=== PATIENT | female | born 1985 | race Caucasian/White ===

== ENCOUNTER 2016-10-07 06:31 | Emergency (ER) | payer OTHER ==
[2015-05-23 17:24] VITALS: BMI 33.3
[~2016-10-07 06:31] MED LIST: HYDROCODONE-APA1 TAB PO; IBUPROFEN600 MG PO
== END 2016-10-07 09:00 | disposition left against medical advice (07) ==
LOC: D.ER 06:31
DX: H92.02 Otalgia, left ear (principal)

== ENCOUNTER 2016-10-11 20:15 | Emergency (ER) | payer OTHER ==
[2015-05-23 17:24] VITALS: BMI 33.3
== END 2016-10-12 00:25 | disposition home or self-care (01) ==
LOC: D.ER 20:15
DX: H66.92 Otitis media, unspecified, left ear (principal); H92.03 Otalgia, bilateral; H69.90 Unspecified Eustachian tube disorder, unspecified ear; J06.9 Acute upper respiratory infection, unspecified

== ENCOUNTER 2016-11-07 21:38 | Emergency (ER) | payer OTHER ==
[2015-05-23 17:24] VITALS: BMI 33.3
== END 2016-11-07 23:36 | disposition home or self-care (01) ==
LOC: D.ER 21:38
DX: T14.8 Other injury of unspecified body region (principal); W19.XXXA Unspecified fall, initial encounter; Y93.89 Activity, other specified; Y92.89 Other specified places as the place of occurrence of the external cause; F17.200 Nicotine dependence, unspecified, uncomplicated

== ENCOUNTER 2016-12-02 21:39 | Emergency (ER) | payer OTHER ==
[2015-05-23 17:24] VITALS: BMI 33.3
[2016-12-03 00:10] LABS: HCG URINE NEGATIVE (NEGATIVE)
== END 2016-12-03 00:35 | disposition home or self-care (01) ==
LOC: D.ER 21:39
PROVIDERS: Physician Assistant Medical
DX: G43.909 Migraine, unspecified, not intractable, without status migrainosus (principal); F17.200 Nicotine dependence, unspecified, uncomplicated

== ENCOUNTER 2017-01-30 20:25 | Emergency (ER) | payer OTHER ==
[2015-05-23 17:24] VITALS: BMI 33.3
== END 2017-01-30 21:19 | disposition home or self-care (01) ==
LOC: D.ER 20:25
DX: S60.221A Contusion of right hand, initial encounter (principal); X58.XXXA Exposure to other specified factors, initial encounter; Y93.89 Activity, other specified; Y92.89 Other specified places as the place of occurrence of the external cause; F17.200 Nicotine dependence, unspecified, uncomplicated

== ENCOUNTER 2017-03-30 15:09 | Emergency (ER) | payer OTHER ==
[2015-05-23 17:24] VITALS: BMI 33.3
[2017-03-30 16:42] LABS: BASOPHILS 0.6 % (0-2); EOSINOPHILS 2.5 % (0-7); HEMATOCRIT 43.6 % (36.0-48.0); HEMOGLOBIN 14.8 g/dL (12-16); IMMATURE GRANULOCYTES 0.3 % (0-5); LYMPHOCYTES 21.7 % (15-50); MCH 30.2 pg (26.0-34.0); MCHC 33.9 g/dL (31.0-37.0); MEAN PLATELET VOLUME 10.4 fL (7.4-10.4); MONOCYTES 10.1 % (2-11); NEUTROPHILS 64.8 % (40-80); PLATELET COUNT 171 10x3/uL (130-400); RDW 13.4 % (11.5-14.5)
[2017-03-30 16:44] LABS: ALBUMIN 3.9 g/dL (3.4-5.0); ALKALINE PHOSPHATASE 85 U/L (46-116); ALT (SGPT) 41 U/L (10-68); BILIRUBIN - TOTAL 0.45 mg/dL (0.2-1.3); CALC OSMOLALITY 288 mosm/kg (275-300); CALCIUM 9.8 mg/dL (8.5-10.1); CHLORIDE - SERUM 107 mmol/L (98-107); CREATININE - SERUM 0.7 mg/dL (0.6-1.3); GLUCOSE 103 mg/dL (74-106); POTASSIUM - SERUM 3.8 mmol/L (3.5-5.1); SODIUM 145 mmol/L (136-145); UREA NITROGEN 13 mg/dL (7-18); eGFR NON AFRICAN AMERICAN > 90 mL/min (90-120)
== END 2017-03-30 17:55 | disposition home or self-care (01) ==
LOC: D.ER 15:09
PROVIDERS: Physician Assistant Medical
DX: R51 Headache (principal); B34.9 Viral infection, unspecified; F17.200 Nicotine dependence, unspecified, uncomplicated

== ENCOUNTER 2017-05-05 00:36 | Emergency (ER) | payer OTHER ==
[2015-05-23 17:24] VITALS: BMI 33.3
== END 2017-05-05 01:44 | disposition home or self-care (01) ==
LOC: D.ER 00:36
DX: G43.909 Migraine, unspecified, not intractable, without status migrainosus (principal); F17.200 Nicotine dependence, unspecified, uncomplicated

== ENCOUNTER 2017-05-10 07:23 | Emergency (ER) | payer OTHER ==
[2015-05-23 17:24] VITALS: BMI 33.3
[2017-05-10 09:45] LABS: BASOPHILS 0.5 % (0-2); EOSINOPHILS 3.9 % (0-7); HEMATOCRIT 43.2 % (36.0-48.0); HEMOGLOBIN 14.6 g/dL (12-16); IMMATURE GRANULOCYTES 0.1 % (0-5); LYMPHOCYTES 21.3 % (15-50); MCHC 33.8 g/dL (31.0-37.0); MCV 88.9 fL (80.0-100.0); MEAN PLATELET VOLUME 10.1 fL (7.4-10.4); MONOCYTES 6.2 % (2-11); PLATELET COUNT 201 10x3/uL (130-400); RBC 4.86 10x6/uL (4.00-5.40); RDW 13.2 % (11.5-14.5); WBC 7.7 10x3/uL (4.8-10.8)
== END 2017-05-10 09:55 | disposition home or self-care (01) ==
LOC: D.ER 07:23
PROVIDERS: Family Medicine
DX: S16.1XXA Strain of muscle, fascia and tendon at neck level, initial encounter (principal); V48.0XXA Car driver injured in noncollision transport accident in nontraffic accident, initial encounter; Y93.89 Activity, other specified; Y92.410 Unspecified street and highway as the place of occurrence of the external cause; S80.01XA Contusion of right knee, initial encounter; S00.83XA Contusion of other part of head, initial encounter; F17.200 Nicotine dependence, unspecified, uncomplicated

== ENCOUNTER 2017-06-14 11:56 | Emergency (ER) | payer OTHER ==
[2015-05-23 17:24] VITALS: BMI 33.3
== END 2017-06-14 15:41 | disposition home or self-care (01) ==
LOC: D.ER 11:56
DX: G43.909 Migraine, unspecified, not intractable, without status migrainosus (principal)

== ENCOUNTER 2017-06-18 17:37 | Emergency (ER) | payer OTHER ==
[2015-05-23 17:24] VITALS: BMI 33.3
== END 2017-06-18 21:09 | disposition home or self-care (01) ==
LOC: D.ER 17:37
DX: G43.909 Migraine, unspecified, not intractable, without status migrainosus (principal)

== ENCOUNTER 2017-07-28 15:03 | Emergency (ER) | payer OTHER ==
[2015-05-23 17:24] VITALS: BMI 33.3
== END 2017-07-28 17:20 | disposition home or self-care (01) ==
LOC: D.ER 15:03
DX: J11.1 Influenza due to unidentified influenza virus with other respiratory manifestations (principal); H66.91 Otitis media, unspecified, right ear

== ENCOUNTER 2017-10-08 13:28 | Emergency (ER) | payer OTHER ==
[2015-05-23 17:24] VITALS: BMI 33.3
[2017-10-08 14:23] LABS: BASOPHILS 0.7 % (0-2); EOSINOPHILS 3.3 % (0-7); HEMATOCRIT 45.1 % (36.0-48.0); HEMOGLOBIN 15.2 g/dL (12-16); IMMATURE GRANULOCYTES 0.2 % (0-5); LYMPHOCYTES 44.7 % (15-50); MCH 29.7 pg (26.0-34.0); MCHC 33.7 g/dL (31.0-37.0); MCV 88.1 fL (80.0-100.0); MONOCYTES 9.4 % (2-11); NEUTROPHILS 41.7 % (40-80); RBC 5.12 10x6/uL (4.00-5.40); RDW 13.3 % (11.5-14.5); WBC 6.2 10x3/uL (4.8-10.8)
[2017-10-08 14:56] LABS: PLATELET COUNT 249 10x3/uL (130-400)
[2017-10-08 16:26] LABS: HCG SERUM NEGATIVE (NEGATIVE)
[2017-10-08 18:00] LABS: APPEARANCE HAZY (CLEAR); BILIRUBIN NEGATIVE (NEGATIVE); COLOR ORANGE (YELLOW); GLUCOSE NEGATIVE (NEGATIVE); KETONE NEGATIVE (NEGATIVE); NITRITE NEGATIVE (NEGATIVE); PROTEIN NEGATIVE (NEGATIVE); SPECIFIC GRAVITY 1.005 (1.005-1.020); UROBILINOGEN NORMAL (NORMAL)
[2017-10-08 18:01] LABS: WHITE CELLS - URINE 0-5 /hpf (0-5)
[2017-10-08 18:02] LABS: BACTERIA FEW /hpf (NONE SEEN)
[2017-10-08 18:03] LABS: HCG URINE NEGATIVE (NEGATIVE); MUCUS <1+ /lpf (NONE SEEN)
== END 2017-10-08 19:39 | disposition home or self-care (01) ==
LOC: D.ER 13:28
PROVIDERS: Family Medicine
DX: N39.0 Urinary tract infection, site not specified (principal); N83.201 Unspecified ovarian cyst, right side

== ENCOUNTER 2019-03-25 16:46 | Emergency (ER) | payer MEDICAID ==
[~2019-03-25] VITALS: Ht 170.2 cm; Wt 72.7 kg
[2019-03-25 17:03] VITALS: BP 130/91; Ht 170.2 cm; Wt 72.7 kg
[2019-03-25 17:46] LABS: APPEARANCE CLEAR (CLEAR); BILIRUBIN NEGATIVE (NEGATIVE); COLOR YELLOW (YELLOW); GLUCOSE NEGATIVE (NEGATIVE); KETONE NEGATIVE (NEGATIVE); NITRITE NEGATIVE (NEGATIVE); PROTEIN NEGATIVE (NEGATIVE); SPECIFIC GRAVITY 1.015 (1.005-1.020); UROBILINOGEN NORMAL (NORMAL)
[2019-03-25 17:49] LABS: UDS - AMPHET NEGATIVE QUAL (NEGATIVE); UDS - BARB NEGATIVE QUAL (NEGATIVE); UDS - BENZO NEGATIVE QUAL (NEGATIVE); UDS - OPIATE NEGATIVE QUAL (NEGATIVE); UDS - PCP NEGATIVE QUAL (NEGATIVE); UDS - THC NEGATIVE QUAL (NEGATIVE)
[2019-03-25 18:05] LABS: UDS - COCAINE NEGATIVE QUAL (NEGATIVE)
[2019-03-25 18:16] LABS: BASOPHILS 1.3 % (0-2); EOSINOPHILS 6.2 % (0-7); HEMATOCRIT 37.3 % (36.0-48.0); HEMOGLOBIN 12.6 g/dL (12-16); LYMPHOCYTES 31.2 % (15-50); MCH 29.6 pg (26.0-34.0); MCHC 33.8 g/dL (31.0-37.0); MCV 87.6 fL (80.0-100.0); MEAN PLATELET VOLUME 9.3 fL (7.4-10.4); MONOCYTES 7.8 % (2-11); NEUTROPHILS 52.5 % (40-80); PLATELET COUNT 246 10x3/uL (130-400); RBC 4.26 10x6/uL (4.00-5.40); WBC 6.3 10x3/uL (4.8-10.8)
[2019-03-25 18:49] LABS: ALBUMIN 3.9 g/dL (3.4-5.0); ALKALINE PHOSPHATASE 107 U/L (46-116); ALT (SGPT) 74 U/L (10-68); BILIRUBIN - TOTAL 0.18 mg/dL (0.2-1.3); CALC OSMOLALITY 289 mosm/kg (275-300); CALCIUM 9.1 mg/dL (8.5-10.1); CARBON DIOXIDE 29.7 mmol/L (21.0-32.0); CHLORIDE - SERUM 104 mmol/L (98-107); CREATININE - SERUM 0.8 mg/dL (0.6-1.3); GLUCOSE 118 mg/dL (74-106); POTASSIUM - SERUM 4.3 mmol/L (3.5-5.1); PROTEIN - SERUM 7.6 g/dL (6.4-8.2); SODIUM 144 mmol/L (136-145); UREA NITROGEN 17 mg/dL (7-18); eGFR NON AFRICAN AMERICAN 86 mL/min (90-120)
--- NOTE | 2019-03-25 19:03 | NUR ---
DR. CHIRINOS NOTIFIED AND SITTER ORDERED. SITTER AT BEDSIDE. NOTIFIED CHARGE NURSE AND ATTENDING IN REGARDS TO ASSESSMENT FINDINGS. RESOURCES GIVEN TO PT AND SAFETY PLAN INITIATED.
[2019-03-25] MEDS ORDERED: CLEOCIN HCL300 MG PO (20:19)
[2019-03-25 20:47] LABS: HCG URINE NEGATIVE (NEGATIVE)
== END 2019-03-25 20:45 | disposition left against medical advice (07) ==
LOC: D.ER 16:46
PROVIDERS: Family Medicine
DX: R45.851 Suicidal ideations (principal); F41.9 Anxiety disorder, unspecified; F32.9 Major depressive disorder, single episode, unspecified

== ENCOUNTER 2019-10-06 12:35 | Emergency (ER) | payer OTHER ==
[~2019-10-06] VITALS: Ht 170.2 cm; Wt 72.7 kg
[~2019-10-06 12:35] MED LIST changes: +CLEOCIN HCL300 MG PO
[2019-10-06 12:37] VITALS: BP 105/63; Ht 170.2 cm; Wt 72.7 kg
[2019-10-06 13:29] LABS: BILIRUBIN NEGATIVE (NEGATIVE); GLUCOSE NEGATIVE (NEGATIVE); KETONE NEGATIVE (NEGATIVE); NITRITE NEGATIVE (NEGATIVE); SPECIFIC GRAVITY 1.005 (1.005-1.020); UROBILINOGEN NORMAL (NORMAL)
[2019-10-06 13:30] LABS: BACTERIA NONE SEEN /hpf (NEGATIVE); EPITHELIAL CELLS RARE /hpf (0-5); RED CELLS - URINE OCC /hpf (0-5); WHITE CELLS - URINE NSEEN /hpf (NEGATIVE)
[2019-10-06] MEDS ORDERED: CYCLOBENZAPRINE10 MG PO (13:59)
[2019-10-06] MEDS ORDERED: IBUPROFEN800 MG PO (13:59)
[2019-10-06] MEDS ORDERED: ACETAMINOPHEN500 M1 PO (13:59)
== END 2019-10-06 14:35 | disposition home or self-care (01) ==
LOC: D.ER 12:35
PROVIDERS: Family Medicine
DX: R10.9 Unspecified abdominal pain (principal); M79.18 Myalgia, other site; T14.8XXA Other injury of unspecified body region, initial encounter; Z53.20 Procedure and treatment not carried out because of patient's decision for unspecified reasons; V79.50XA Passenger on bus injured in collision with unspecified motor vehicles in traffic accident, initial encounter; Y93.9 Activity, unspecified; Y92.9 Unspecified place or not applicable

== ENCOUNTER 2021-01-16 12:35 | Emergency (ER) | payer OTHER ==
[~2021-01-16] VITALS: Ht 170.2 cm; Wt 86.4 kg
[~2021-01-16 12:35] MED LIST changes: +ACETAMINOPHEN500 M1 PO; +CYCLOBENZAPRINE10 MG PO; +IBUPROFEN800 MG PO
[2021-01-16 13:06] VITALS: BP 115/69; Ht 170.2 cm; Wt 86.4 kg
[2021-01-16] MEDS ORDERED: ORAL ANALGESIC9 GM TOPICAL (13:15)
[2021-01-16] MEDS ORDERED: VOLTAREN75 MG PO (13:15)
[2021-01-16] MEDS ORDERED: PENICILLIN V P500 MG PO (13:15)
== END 2021-01-16 14:58 | disposition home or self-care (01) ==
LOC: D.ER 12:35
DX: K08.89 Other specified disorders of teeth and supporting structures (principal); K02.9 Dental caries, unspecified